=== PATIENT | female | born 2000 | race Caucasian/White ===

== ENCOUNTER 2025-06-09 15:30 | Outpatient (CLI) | payer SELFPAY ==
--- NOTE | ~2025-06-09 | US_ITS ---
EXAMINATION: US pelvic complete, 06/09/2025 15:36 CDT HISTORY: secondary amenorrhea Comparison: None Technique: [place]-scale and color Doppler images were obtained. Findings: Uterus: Uterus anteverted 6.4 x 2.5 x 3.9 cm. . Endometrium 3 mm. Right Ovary:Right ovary 3.1 x 1.9 x 2.5 cm, no Adnexal mass, normal flow. Left Ovary: Left ovary 2.1 x 1 0.5 to 1.8 cm, no adnexal mass, normal flow. Free Fluid: None Impression: No etiology to explain the patient's symptoms Reviewed, dictated and finalized at location A. Impression: No etiology to explain the patient's symptoms
== END 2025-06-09 15:31 | disposition home or self-care (01) ==
PROVIDERS: PCP Advanced Practice Midwife; Visit Provider Advanced Practice Midwife
DX: N91.1 Secondary amenorrhea (principal)
CPT/HCPCS: 76856